=== PATIENT | male | born 1950 | race Caucasian/White ===

== ENCOUNTER 2019-04-28 11:18 | Emergency (ER) | payer MEDICARE, OTHER ==
--- NOTE | 2019-04-28 11:43 | ED ---
General Adult HPI - General Chief complaint: Recheck/Abnormal Lab/Rx Stated complaint: Abnormal labs Time Seen by Provider: 04/28/19 11:30 Source: family Mode of arrival: ambulatory Limitations: no limitations - History of Present Illness Initial comments: Dictation was produced using Paradial dictation software. please excuse any gramma tical, word or spelling errors. Chief Complaint: 68-year-old male sent in by his senior manager mergers & acquisitions for thrombocytopenia. History of Present Illness: Patient is a 73-year-old male he was seen by his senior manager mergers & acquisitions earlier today. He had labs drawn. His found to have a platelet count of 8. Patient has a history of idiopathic thrombocytopenia several years ago. Over the last 3-4 days he had noticed increased bruising. He was instructed to come to the emergency department for platelet transfusion, IV steroids and senior manager mergers & acquisitions consultation. He says bruising patient has no other complaints. Denies any strokelike symptoms. No joint pain. Patient denies any lightheadedness. The ROS documented in this emergency department record has been reviewed and confirmed by me. Those systems with pertinent positive or negative responses have been documented in the HPI. All other systems are other negative and/or noncontributory. PHYSICAL EXAM: General Impression: Alert and oriented x3, not in acute distress HEENT: Normocephalic atraumatic, extra-ocular movements intact, pupils equal and reactive to light bilaterally, mucous membranes moist. Cardiovascular: Heart regular rate and rhythm, S1&S2 audible, no murmurs, rubs or gallops Chest: Lungs clear to auscultation bilaterally, no rhonchi, no wheeze, no rales Abdomen: Bowel sounds present, abdomen soft, non-tender, non-distended, no organomegaly Musculoskeletal: Pulses present and equal in all extremities, no peripheral edema Motor: no focal deficits noted Neurological: CN II-XII grossly intact, no focal motor or sensory deficits noted Skin: Multiple areas of ecchymoses to extremities back and abdomen, no soft palatal petechiae Psych: Normal affect and mood ED course: 68-year-old male presents with abnormal outpatient lab. Patient's history of idiopathic thrombocytopenia. Patient had labs drawn today at the senior manager mergers & acquisitions's office for increased bruising. His fontanelle platelet count of 8. Instructed to come to the emergency department for platelet transfusion and intravenous steroids. Vital signs upon arrival are within acceptable limits. Medications were reviewed.Discussed patient case in detail with nurse practitioner Radha olivares who is covering for Dr. Iverson. She is aware that patient was sent over from Dr. Fonseca's office. She confirms that patient should receive a dose of 1 mg/kg methylprednisolone. Patient given 125 mg of Solu-Medrol. Patient pending demonstration of platelets. His care signed out to oncoming physician. Once patient receives platelet transfusion he can be discharged per senior manager mergers & acquisitions recommendations. - Related Data Home Medications Medication Instructions Recorded Confirmed Amitriptyline HCl 25 mg PO HS 08/09/14 04/28/19 Aspirin EC [Ecotrin] 325 mg PO DAILY 08/09/14 04/28/19 Atorvastatin [Lipitor] 80 mg PO HS 08/09/14 04/28/19 Gabapentin 300 mg PO DAILY 08/09/14 04/28/19 Lisinopril 10 mg PO QAM 08/09/14 04/28/19 Metoprolol Tartrate 25 mg PO BID 08/09/14 04/28/19 predniSONE [Prednisone] 2.5 mg PO DAILY 08/09/14 04/28/19 Ezetimibe [Zetia] 10 mg PO HS 04/28/19 04/28/19 Meloxicam [Mobic] 15 mg PO DAILY 04/28/19 04/28/19 Allergies Allergy/AdvReac Type Severity Reaction Status Date / Time naproxen [From Naprosyn] AdvReac blisters Verified 04/28/19 11:42 Review of Systems ROS Statement: Those systems with pertinent positive or pertinent negative responses have been documented in the HPI. ROS Other: All systems not noted in ROS Statement are negative. Past Medical History Past Medical History: Blood Disorder, Hyperlipidemia, Hypertension, Myocardial Infarction ([place]) Additional Past Medical History / Comment(s): HX OF ITP, NEUROPATHY BLANKA FEET, pre diabetes 08/2018 Last Myocardial Infarction Date:: 2011 History of Any Multi-Drug Resistant Organisms: None Reported Past Surgical History: Heart Catheterization With Stent Additional Past Surgical History / Comment(s): SPLEENECTOMY Past Anesthesia/Blood Transfusion Reactions: No Reported Reaction Date of Last Stent Placement:: 2011 Past Psychological History: No Psychological Hx Reported Smoking Status: Never smoker Past Alcohol Use History: Daily Past Drug Use History: None Reported General Exam Limitations: no limitations Course Vital Signs 04/28/19 04/28/19 04/28/19 11:25 11:54 12:21 Temperature 98.0 F Pulse Rate 59 L 63 64 Respiratory 18 18 18 Rate Blood Pressure 141/91 145/101 152/95 O2 Sat by Pulse 96 95 94 L Oximetry 04/28/19 04/28/19 04/28/19 14:46 15:42 15:52 Temperature 97 F L 98.3 F Pulse Rate 76 80 76 Respiratory 16 18 16 Rate Blood Pressure 152/89 146/87 146/92 O2 Sat by Pulse 94 L 93 L 95 Oximetry 04/28/19 04/28/19 04/28/19 16:22 18:44 18:48 Temperature 98 F 98.7 F 98.7 F Pulse Rate 75 82 82 Respiratory 16 18 18 Rate Blood Pressure 174/92 164/93 164/93 O2 Sat by Pulse 94 L 96 96 Oximetry Medical Decision Making - Lab Data Result diagrams: 04/28/19 11:45 04/28/19 11:45 Lab Results 04/28/19 04/28/19 04/28/19 Range/Units 11:45 11:45 11:45 WBC 9.5 (3.8-10.6) k/uL RBC 4.54 (4.30-5.90) m/uL Hgb 14.2 (13.0-17.5) gm/dL Hct 42.1 (39.0-53.0) % MCV 92.7 (80.0-100.0) fL MCH 31.2 (25.0-35.0) pg MCHC 33.7 (31.0-37.0) g/dL RDW 16.0 H (11.5-15.5) % Plt Count 12 L* (150-450) k/uL Neutrophils % 47 % Lymphocytes % 41 % Monocytes % 7 % Eosinophils % 2 % Basophils % 1 % Neutrophils # 4.4 (1.3-7.7) k/uL Lymphocytes # 3.9 (1.0-4.8) k/uL Monocytes # 0.7 (0-1.0) k/uL Eosinophils # 0.2 (0-0.7) k/uL Basophils # 0.1 (0-0.2) k/uL Manual Slide Review Performed Poikilocytosis (manual Present Anisocytosis Slight [place] Bodies Present PT (9.0-12.0) sec INR (<1.2) APTT (22.0-30.0) sec Fibrinogen (200-500) mg/dL Sodium 139 (137-145) mmol/L Potassium 4.5 (3.5-5.1) mmol/L Chloride 105 (98-107) mmol/L Carbon Dioxide 26 (22-30) mmol/L Anion Gap 8 mmol/L BUN 17 (9-20) mg/dL Creatinine 0.74 (0.66-1.25) mg/dL Est GFR (CKD-EPI)AfAm >90 (>60 ml/min/1.73 sqM) Est GFR (CKD-EPI)NonAf >90 (>60 ml/min/1.73 sqM) Glucose 128 H (74-99) mg/dL Calcium 9.1 (8.4-10.2) mg/dL Blood Type B Positive Blood Type Recheck No Antibody Screen NEGATIVE Transfuse Platelets Spec Expiration Date 05/01/2019 - 234404/28/19 04/28/19 Range/Units 11:45 12:26 WBC (3.8-10.6) k/uL RBC (4.30-5.90) m/uL Hgb (13.0-17.5) gm/dL Hct (39.0-53.0) % MCV (80.0-100.0) fL MCH (25.0-35.0) pg MCHC (31.0-37.0) g/dL RDW (11.5-15.5) % Plt Count (150-450) k/uL Neutrophils % % Lymphocytes % % Monocytes % % Eosinophils % % Basophils % % Neutrophils # (1.3-7.7) k/uL Lymphocytes # (1.0-4.8) k/uL Monocytes # (0-1.0) k/uL Eosinophils # (0-0.7) k/uL Basophils # (0-0.2) k/uL Manual Slide Review Poikilocytosis (manual Anisocytosis [place] Bodies PT 10.0 (9.0-12.0) sec INR 0.9 (<1.2) APTT 23.4 (22.0-30.0) sec Fibrinogen 397 (200-500) mg/dL Sodium (137-145) mmol/L Potassium (3.5-5.1) mmol/L Chloride (98-107) mmol/L Carbon Dioxide (22-30) mmol/L Anion Gap mmol/L BUN (9-20) mg/dL Creatinine (0.66-1.25) mg/dL Est GFR (CKD-EPI)AfAm (>60 ml/min/1.73 sqM) Est GFR (CKD-EPI)NonAf (>60 ml/min/1.73 sqM) Glucose (74-99) mg/dL Calcium (8.4-10.2) mg/dL Blood Type Blood Type Recheck Antibody Screen Transfuse Platelets 04/28/19 Spec Expiration Date Disposition Clinical Impression: Idiopathic thrombocytopenic purpura (ITP) Disposition: HOME SELF-CARE Condition: Good Instructions (If sedation given, give patient instructions): Blood Transfusion Reactions (ED) Is patient prescribed a controlled substance at d/c from ED?: No Referrals: Saw Campbell DO [Primary Care Provider] - 1-2 days Time of Disposition: 16:47
[2019-04-28 12:12] LABS: African American GFR (CKD) >90 (>60 ml/min/1.73 sqM); Anion Gap 8 mmol/L; Blood Urea Nitrogen 17 mg/dL (9-20); Calcium 9.1 mg/dL (8.4-10.2); Carbon Dioxide 26 mmol/L (22-30); Chloride 105 mmol/L (98-107); Glucose 128 mg/dL (74-99); Potassium 4.5 mmol/L (3.5-5.1); Sodium 139 mmol/L (137-145)
[2019-04-28 12:16] LABS: INR 0.9 (<1.2); Partial Thromboplastin Time 23.4 sec (22.0-30.0)
[2019-04-28] MEDS ORDERED: methylPREDNISolone SOD SUCCI 125 MG/2 ML VIAL IV STA (12:37)
[2019-04-28 12:39] LABS: Anisocytosis Slight; Basophils # (A) 0.1 k/uL (0-0.2); Basophils % (A) 1 %; Eosinophils # (A) 0.2 k/uL (0-0.7); Eosinophils % (A) 2 %; HCT 42.1 % (39.0-53.0); HGB 14.2 gm/dL (13.0-17.5); Lymphocytes # (A) 3.9 k/uL (1.0-4.8); Lymphocytes % (A) 41 %; MCH 31.2 pg (25.0-35.0); MCHC 33.7 g/dL (31.0-37.0); MCV 92.7 fL (80.0-100.0); Mean Platelet Volume 9.6; Monocytes # (A) 0.7 k/uL (0-1.0); Monocytes % (A) 7 %; Neutrophils # (A) 4.4 k/uL (1.3-7.7); Neutrophils % (A) 47 %; RBC 4.54 m/uL (4.30-5.90); WBC 9.5 k/uL (3.8-10.6)
[2019-04-28 12:53] LABS: Platelet Count 12 k/uL (150-450)
[2019-04-28 13:10] LABS: Howell-Jolly Bodies Present; Poikilocytosis (M) Present
[2019-04-28 18:45] VITALS: BP 164/93; PULSE 82; RESP 18; TEMP 98.7
--- NOTE | 2019-04-30 06:14 | CDI ---
Documentation Clarification OP Dear Neno BORREGO, DO Please provide clinical impression. Thank you, Garett Goss Assistant Director Of Admissions If you have any questions, please contact [employer] at [phone] [facility]
== END 2019-04-28 18:54 | disposition home or self-care (01) ==
LOC: EC 11:18
DX: D69.3 Immune thrombocytopenic purpura (principal); E78.5 Hyperlipidemia, unspecified; I10 Essential (primary) hypertension; I25.2 Old myocardial infarction; Z95.5 Presence of coronary angioplasty implant and graft; Z79.82 Long term (current) use of aspirin; Z79.52 Long term (current) use of systemic steroids; Z79.1 Long term (current) use of non-steroidal anti-inflammatories (NSAID); Z79.899 Other long term (current) drug therapy; Z88.6 Allergy status to analgesic agent
CPT/HCPCS: 99283; 96374; 36415; 93005; 86900; 86901; 80048; 85025; 85384; 85610; 85730; 86850; P9035; J2930; 36430

== ENCOUNTER → 2020-02-02 | Outpatient (CLI) | payer MEDICARE ==
--- NOTE | 2020-02-02 11:57 | XR ---
No sacral spine HISTORY: Low back pain 5 views of lumbosacral spine Lumbar vertebral bodies show preserved height and alignment. Bone mineralization is reduced. There is loss of disc height at intervertebral levels with associated vacuum phenomenon. Facet arthropathy ch anges are present. There is a spinal curvature.*Your calcified lesions present. No evident spondyloly sis. IMPRESSION: Degenerative disc disease, facet arthropathy, spinal curvature.
== END | disposition home or self-care (01) ==
LOC: RADXRYALE 10:48
PROVIDERS: ATTEND Family Medicine
DX: M51.37 Other intervertebral disc degeneration, lumbosacral region (principal); M47.817 Spondylosis without myelopathy or radiculopathy, lumbosacral region; M43.9 Deforming dorsopathy, unspecified; M54.42 Lumbago with sciatica, left side
CPT/HCPCS: 72110

== ENCOUNTER → 2020-02-11 | Outpatient (CLI) | payer MEDICARE ==
--- NOTE | 2020-02-10 19:15 | MR ---
EXAMINATION TYPE: MR lumbar spine wo con DATE OF EXAM: 02/10/2020 COMPARISON: Lumbar spine x-ray February 02, 2020 HISTORY: Lumbar goal with right-sided sciatica. Other intervertebral disc degeneration. Chronic pain. Low back pain for 6 months causing pain into both buttocks and thighs per patient. TECHNIQUE: Multiplanar, multisequence imaging of the lumbar spine is performed without IV contrast. FINDINGS: There is levoconvex scoliosis centered in the mid lumbar spine redemonstrated. Sagittal shasta ges of the lumbar spine show vertebral body heights to remain satisfactory. Loss of normal lumbar ashley dosis with straightening again seen. Multilevel disc desiccation with fairly advanced multilevel disc space narrowing along with significant heterogeneous predominantly Modic type II endplate changes gr eatest in the mid to lower lumbar spine. Moderate to severe multilevel anterior spurring redemonstrat ed. The conus medullaris is normal in position and signal ending inferior L1 level. There is prominen ce of epidural fat noted throughout the lumbar spine. Axial images at T12-L1 level shows mild broad-based disc bulge and mild facet arthropathy. There is m inimal effacement anterior thecal sac. Axial images at L1-L2 level show moderate broad-based disc bulge effacing anterior thecal sac with mi ld facet arthropathy bilaterally. There is mild left greater than right bilaterally. Inferior neural foraminal narrowing. Axial images at the L2-L3 level shows advanced broad disc bulge with right paracentral disc protrusio n component effacing the anterior thecal sac. Rslg-xw-vldikizr facet degenerative changes bilaterally . There is [id number]-[id number] bilateral anterior inferior neural foraminal narrowing. Axial images at the L3-L4 level show mild/moderate facet degenerative changes and ligamentum flavum h ypertrophy with moderate broad disc bulge effacing the anterior thecal sac. There is moderate right a nd mild left-sided neural foraminal narrowing noted. Axial images at L4-L5 level shows advanced broad disc bulge with moderate facet degenerative changes bilaterally. There is effacement of the anterior and posterior lateral thecal sac. There is mild to m oderate left and mild to moderate bilateral neural foraminal narrowing noted. Axial images at the L5-S1 level show mild/moderate facet degenerative changes bilaterally. There is b road-based left foraminal/lateral. This causes moderate to severe left-sided neural foraminal narrowi ng and encroachment on left L5 nerve sagittal image 6 and axial image 3. Right-sided neural foramina is patent. Spinal canal preserved. Mild to moderate generalized fat replaced atrophy of the paraspinal muscles. IMPRESSION: Scoliosis and loss of normal lumbar lordosis. Epidural lipomatosis. Moderate to severe mu ltilevel degenerative changes as detailed above with encroachment left L5 nerve at L5-S1 level felt p resent.
== END | disposition home or self-care (01) ==
LOC: RADMRIMAIN 06:45
PROVIDERS: ATTEND Family Medicine
DX: M41.86 Other forms of scoliosis, lumbar region (principal); E88.2 Lipomatosis, not elsewhere classified; M47.815 Spondylosis without myelopathy or radiculopathy, thoracolumbar region; M47.816 Spondylosis without myelopathy or radiculopathy, lumbar region; M47.817 Spondylosis without myelopathy or radiculopathy, lumbosacral region; G63 Polyneuropathy in diseases classified elsewhere
CPT/HCPCS: 72148

== ENCOUNTER → 2020-05-09 | Outpatient (CLI) | payer MEDICARE ==
[2020-05-09 08:41] VITALS: BP 138/88; PULSE 69; RESP 16; TEMP 98.1
--- NOTE | 2020-05-09 08:55 | P.PAINCN ---
History of Present Illness - Reason for Consult Consult date: 05/09/20 - History of Present Illness This is an initial consultation of visit for this 69 years old male with a chronic history of severe low back pain, started more than 9 months ago, and increased intensity over time, currently the pain is constant and increases with any activity and interfere with the quality of life, he denies any motor or sensory deficits he denies any fever or night sweats he denies any change in bowel movement or urination, and appropriate in the pain is constant and increases with any activity due to the posterior lateral aspect of the lower extremity more prominent on the left side, patient had a history of peripheral neuropathy secondary to diabetes, and he had a history of idiopathic thrombocytopenia Past Medical History Past Medical History: Blood Disorder, Diabetes Mellitus, Hyperlipidemia, Hypertension, Myocardial Infarction ([place]) Additional Past Medical History / Comment(s): sciatica, HX OF ITP, NEUROPATHY BLANKA FEET Last Myocardial Infarction Date:: 2011 History of Any Multi-Drug Resistant Organisms: None Reported Past Surgical History: Heart Catheterization With Stent, Tonsillectomy Additional Past Surgical History / Comment(s): SPLEENECTOMY Past Anesthesia/Blood Transfusion Reactions: No Reported Reaction Date of Last Stent Placement:: 2011 Smoking Status: Never smoker - Past Family History Mother Family Medical History: No Reported History Father Family Medical History: Diabetes Mellitus Sister(s) Family Medical History: Diabetes Mellitus Medications and Allergies Home Medications Medication Instructions Recorded Confirmed Type Amitriptyline HCl 25 mg PO HS 08/09/14 05/06/20 History Aspirin EC [Ecotrin] 325 mg PO DAILY 08/09/14 05/06/20 History Atorvastatin [Lipitor] 80 mg PO HS 08/09/14 05/06/20 History Gabapentin 900 mg PO BID 08/09/14 05/06/20 History Metoprolol Tartrate 25 mg PO BID 08/09/14 05/06/20 History lisinopriL [Lisinopril] 10 mg PO QAM 08/09/14 05/06/20 History predniSONE [Prednisone] 5 mg PO DAILY 08/09/14 05/06/20 History Ezetimibe [Zetia] 10 mg PO HS 04/28/19 05/06/20 History Acetaminophen Tab [Tylenol Tab] 1,000 mg PO Q6HR PRN 05/06/20 05/06/20 History Furosemide [Lasix] 20 mg PO DAILY 05/06/20 05/06/20 History metFORMIN HCL [Glucophage] 500 mg PO BID 05/06/20 05/06/20 History Allergies Allergy/AdvReac Type Severity Reaction Status Date / Time naproxen [From Naprosyn] Allergy blisters Verified 05/06/20 10:41 to [facility] Physical Exam Vitals: Vital Signs Temp Pulse Resp BP Pulse Ox 05/09/20 08:38 98.1 F 69 16 138/88 97 Physical Examinations : -Constitutiona : Cooperative , not in acute distress . -HEENT : nech : supple , no Lymphadenopathy , normal thyroid size . : eyes : no ptosis , no icterus, no photophobia . - neurologic : Cranial nerve II to XII intact , no focal neurological deffecit . -psychatric : alert , oriented X 3 , appropriate affect , intact judgment and insight . -Lymphatic : no Lymphadenopathy . - musculoskeltal : Lumber spine moter stegnth lower extremities ,thigh and legs 5/5 Right side , 5/5 Left side deep tendon reflexes : normal Knee Jerk , normal ankle Jerk lumber facet Loading Test =positive Right , positive Left Range of motion of the lumbar spine Flexion 30 degrees, extension 10 degrees strait leg raising test = positive at 60 degree Fabere test= positive Right , and positive LT . tenderness over the Sacroiliac joint on the Right , and Left sides Results Comments: MRI of the lumbar spine= L2-lumbar bulging disks disease L2-3 and C4 L4 5 and L5-S1 multilevel lumbar facet degeneration and foraminal stenosis at L4 5 and L5-S1 and epidural lipomatosis Assessment and Plan Plan: Assessment and plan=1-lumbar spondylosis with lumbar facet arthropathy without myelopathy. 2-lumbar bulging disc disease. 3-lumbar foraminal stenosis. 4-epidural lipomatosis. 5-peripheral neuropathy. 6-history of ITP. Patient with good candidate to have diagnostic m edial branch block lumbar area at L3, L4, L5 ( to block the facet joints L4-5,L5-S1 ) Time with Patient: Greater than 30 PQRS Measure Charge Sheet Measure #130: Documentation of Current Meds in Medical Chart: Patient's medications documented in chart Measure #226: Tobacco Use: Screen & Cessation Intervention: Pt not a tobacco user Measure #111: Pneumonia Vaccination: Pneumococcal vaccine administered or previously received Measure #47: Advance Care Plan: Advance care planning discussed & documented, pt chose/unable to give Measure #412: Opioid Treatment Agreement: No documentation of signed opioid treatment agreement Measure #408: Opioid Therapy Follow-up Evaluation: Patient had NO f/u eval minimum every 3 months during opioid therapy Measure #317: Preventitive Care & Scrn High Bld Press & F/U: Normal blood pressure, f/u not required Measure #128: Body Mass Index (BMI) Screening & Follow-up: BMI documented ABOVE normal parameters - f/u documented Measure #131: Pain Assessment & Follow-up: Pain positive & plan documented, Follow-up scheduled Measure #431: Unhealthy Alcohol Use Preventative Care & Scrn: Patient not identified as an unhealthy alcohol user PQRS Narrative: Smoking Status Never smoker Blood Pressure 138/88 Pain Intensity [Back] 7 Scale Used Numeric (1 - 10) Hx Alcohol Use (MH) No Home Medications: Ambulatory Orders Amitriptyline HCl 25 mg PO HS 08/09/14 Aspirin EC [Ecotrin] 325 mg PO DAILY 08/09/14 Atorvastatin [Lipitor] 80 mg PO HS 08/09/14 Gabapentin 900 mg PO BID 08/09/14 Metoprolol Tartrate 25 mg PO BID 08/09/14 lisinopriL [Lisinopril] 10 mg PO QAM 08/09/14 predniSONE [Prednisone] 5 mg PO DAILY 08/09/14 Ezetimibe [Zetia] 10 mg PO HS 04/28/19 Acetaminophen Tab [Tylenol Tab] 1,000 mg PO Q6HR PRN 05/06/20 Furosemide [Lasix] 20 mg PO DAILY 05/06/20 metFORMIN HCL [Glucophage] 500 mg PO BID 05/06/20
== END | disposition home or self-care (01) ==
LOC: PNWHC3 08:14
PROVIDERS: ATTEND Specialist
DX: G89.29 Other chronic pain (principal); M48.061 Spinal stenosis, lumbar region without neurogenic claudication; M51.26 Other intervertebral disc displacement, lumbar region; M47.816 Spondylosis without myelopathy or radiculopathy, lumbar region; G62.9 Polyneuropathy, unspecified; Z86.2 Personal history of diseases of the blood and blood-forming organs and certain disorders involving the immune mechanism; Z79.82 Long term (current) use of aspirin; Z79.84 Long term (current) use of oral hypoglycemic drugs; Z79.899 Other long term (current) drug therapy; Z88.6 Allergy status to analgesic agent
CPT/HCPCS: 99211

== ENCOUNTER 2020-05-24 09:30 | Day surgery (SDC) | payer MEDICARE ==
[2020-05-20 10:35] VITALS: BMI 36.2
[~2020-05-24 09:30] MED LIST: LACTATED RINGERS 1,000 ML IV SCH
[2020-05-24 10:10] VITALS: RESP 16; TEMP 97.2
[2020-05-24] MEDS ORDERED: LIDOCAINE 1% (10MG/ML) FOR IV START INTRADERMA ONE (10:15)
[2020-05-24 10:17] LABS: Glucose,Whole Blood 142 mg/dL (75-99)
[2020-05-24] MEDS ORDERED: ROPIVACAINE 5MG/ML 20ML VIAL ONE (10:57)
[2020-05-24] MEDS ORDERED: TRIAMCINOLONE ACETONIDE 40 MG/ML 1 ML VIAL ONE (10:57)
[2020-05-24] MEDS ORDERED: MIDAZOLAM 2 MG/2 ML VIAL ONE (10:57)
--- NOTE | 2020-05-24 11:17 | P.PCN ---
Date of Procedure: 05/24/20 Surgeon: Samra Yuan Pathology: none sent Condition: stable Disposition: PACU Description of Procedure: PREOPERATIVE DIAGNOSIS : 1- Lumbar spondylosis with Facet Arthropathy without myelopathy . 2- Lumber degenerative disc disease POSTOPERATIVE DIAGNOSIS: 1- Lumbar spondylosis with Facet Arthropathy without myelopathy . 2- Lumber degenerative disc disease PROCEDURE: Diagnostic bilateral L3 -4 , L4 -5 , and L5-S1 medial branch block under fluoroscopy Physician: Samra Yuan MD ANESTHESIA: Local with 1% lidocaine; IV moderate conscious sedation with Versed 2 mg . EBL: Negligible COMPLICATION: None. PROCEDURE INDICATION: Chronic low back pain secondary to Facet arthropathy unresponsive to conservative treatment. PROCEDURE DESCRIPTION: the patient was seen and identified in the preop holding area , risks and benefits and possible complications of the procedure and alternatives were discussed with the patient, and the patient agreed to proceed with the procedure and signed the consent. IV was started and vital signs monitored during the procedure and fluoroscopy was used to maximize the benefit and accuracy of the needle placement, sedation was given to decrease patient anxiety, patient was taken to the procedure room and placed in prone position vital signs monitored. The patient was brought into the procedure room and placed in prone position. Skin was prepped with Chloraprep and draped in a sterile manner. Lidocaine 1% was used to numb the skin up at the target points that were chosen as follows: at the L5-S1 level which corresponds to the dorsal ramus of L5 the target points were at the superior medial aspect of the sacral ala on each side of the spine on the AP view of fluoroscopy, and for theL2, L3 and L4 medial branches the target points were the connection between the transverse process and the superior to go process of L3, L4 and L5 respectively on the oblique views of fluoroscopy. I used 22-gauge 3-1/2 inch Quincke spinal needles for this procedure and after contacting bone at the target points mentioned above I injected 1 mL of a mixture of Kenalog 40 mg +5 MLS of Ropivacaine 0.5% PF . Patient tolerated procedure well. At the end of the procedure the needles removed and a bandage applied after the skin was cleaned the cleaning solution. patient was then taken to the recovery room in stable condition and monitored in the recovery room for 20-30 minutes and discharged home in stable condition after discharge criteria met . A copy of the needle placement picture was saved to the C-arm machine.
[2020-05-24] MEDS ORDERED: IV FLUID CONTINUATION 1,000 ML IV ONE (11:21)
[2020-05-24 12:01] VITALS: BP 118/64; PULSE 75
--- NOTE | 2020-05-24 12:23 | FL ---
Fluoroscopy HISTORY: Pain 10 seconds fluoroscopy time supplied to the referring clinician. 5 intraoperative C-arm images docum ent the procedure. See dictated report from anesthesia.
== END 2020-05-24 12:10 | disposition home or self-care (01) ==
LOC: ORPAIN 09:30
PROVIDERS: ATTEND Anesthesiology
DX: G89.29 Other chronic pain (principal); M47.816 Spondylosis without myelopathy or radiculopathy, lumbar region; M51.36 Other intervertebral disc degeneration, lumbar region; I10 Essential (primary) hypertension; E11.9 Type 2 diabetes mellitus without complications; D69.3 Immune thrombocytopenic purpura; Z88.6 Allergy status to analgesic agent
CPT/HCPCS: 64493; 64494; 64495; J2250; J3301; J2795; 99152

== ENCOUNTER 2020-06-21 12:15 | Day surgery (SDC) | payer MEDICARE ==
[2020-06-17 16:16] VITALS: BMI 36.3
[2020-06-21 12:34] VITALS: TEMP 97.9
[2020-06-21 12:40] LABS: Glucose,Whole Blood 141 mg/dL (75-99)
[2020-06-21] MEDS ORDERED: MIDAZOLAM 2 MG/2 ML VIAL ONE (12:45)
[2020-06-21] MEDS ORDERED: TRIAMCINOLONE ACETONIDE 40 MG/ML 1 ML VIAL ONE (12:45)
[2020-06-21] MEDS ORDERED: ROPIVACAINE 5MG/ML 20ML VIAL ONE (12:45)
--- NOTE | 2020-06-21 13:04 | P.PCN ---
Date of Procedure: 06/21/20 Surgeon: Samra Yuan Pathology: none sent Condition: stable Disposition: PACU Description of Procedure: PREOPERATIVE DIAGNOSIS : 1- Lumbar spondylosis with Facet Arthropathy without myelopathy . 2- Lumber degenerative disc disease POSTOPERATIVE DIAGNOSIS: 1- Lumbar spondylosis with Facet Arthropathy without myelopathy . 2- Lumber degenerative disc disease PROCEDURE: Diagnostic bilateral L3 -4 , L4 -5 , and L5-S1 medial branch block under fluoroscopy Physician: Samra Yuan MD ANESTHESIA: Local with 1% lidocaine; IV moderate conscious sedation with Versed 2 mg . EBL: Negligible COMPLICATION: None. PROCEDURE INDICATION: Chronic low back pain secondary to Facet arthropathy unresponsive to conservative treatment. PROCEDURE DESCRIPTION: the patient was seen and identified in the preop holding area , risks and benefits and possible complications of the procedure and alternatives were discussed with the patient, and the patient agreed to proceed with the procedure and signed the consent. IV was started and vital signs monitored during the procedure and fluoroscopy was used to maximize the benefit and accuracy of the needle placement, sedation was given to decrease patient anxiety, patient was taken to the procedure room and placed in prone position vital signs monitored. The patient was brought into the procedure room and placed in prone position. Skin was prepped with Chloraprep and draped in a sterile manner. Lidocaine 1% was used to numb the skin up at the target points that were chosen as follows: at the L5-S1 level which corresponds to the dorsal ramus of L5 the target points were at the superior medial aspect of the sacral ala on each side of the spine on the AP view of fluoroscopy, and for theL2, L3 and L4 medial branches the target points were the connection between the transverse process and the superior to go process of L3, L4 and L5 respectively on the oblique views of fluoroscopy. I used 22-gauge 3-1/2 inch Quincke spinal needles for this procedure and after contacting bone at the target points mentioned above I injected 1 mL of a mixture of Kenalog 40 mg +7 MLS of Ropivacaine 0.5% PF . Patient tolerated procedure well. At the end of the procedure the needles removed and a bandage applied after the skin was cleaned the cleaning solution. patient was then taken to the recovery room in stable condition and monitored in the recovery room for 20-30 minutes and discharged home in stable condition after discharge criteria met . A copy of the needle placement picture was saved to the C-arm machine.
[2020-06-21] MEDS ORDERED: IV FLUID CONTINUATION 1,000 ML IV ONE (13:08)
[2020-06-21 13:11] VITALS: RESP 18
[2020-06-21 13:21] VITALS: BP 126/76; PULSE 76
--- NOTE | 2020-06-21 14:28 | FL ---
EXAMINATION TYPE: FL guided pain mgmt statistic DATE OF EXAM: 06/21/2020 HISTORY: Pain epidural injection was performed. 10 seconds of fluoroscopic time was provided by the department of radiology. 3 image was provided for documentation purposes.
== END 2020-06-21 13:39 | disposition home or self-care (01) ==
LOC: ORPAIN 12:15
PROVIDERS: ATTEND Anesthesiology
DX: G89.29 Other chronic pain (principal); M47.816 Spondylosis without myelopathy or radiculopathy, lumbar region; M51.36 Other intervertebral disc degeneration, lumbar region; E11.9 Type 2 diabetes mellitus without complications; E66.9 Obesity, unspecified; Z68.36 Body mass index [BMI] 36.0-36.9, adult
CPT/HCPCS: 64493; 64494; 64495; J2250; J3301; J2795; 99152

== ENCOUNTER → 2020-07-13 | Outpatient (CLI) | payer MEDICARE ==
[2020-07-13 10:37] VITALS: BP 127/80; PULSE 74; RESP 16; TEMP 98
--- NOTE | 2020-07-13 11:15 | P.PN ---
Subjective Progress Note Date: 07/13/20 This is a 61-year-old gentleman with history of axial lower back pain. The patient received a diagnostic lumbar medial branch block recently which gave him significant relief of his pain. He does have a history of ITP and he has been on a daily dose of prednisone lately it has been 5 mg a day of it. The patient had splenectomy previously as a treatment for ITP which has not worked up completely well. Patient denies new-onset weakness, bowel/bladder incontinence, or any other signs or symptoms of cauda equina syndrome. There are no signs of acute intoxication, and no indications of medication diversion or overuse. In addition to above, 13-point review of systems is also negative for chest pain, shortness of breath, changes in vision, changes in hearing, new onset weakness, abdominal pain, diarrhea, extreme fatigue, malaise, fever, skin changes, homicidal or suicidal ideation, or bowel or bladder incontinence. Vital Signs: Reviewed in EMR Gen: AAOx3, NAD HEENT: PERRLA,hearing grossly normal Pulm: resp unlabored Neck: supple, trachea midline Neuro exam of the lower extremities: the strength bilaterally Straight leg raising test: Harman's test: Range of motion of the lumbar spine: Facet loading test: Tenderness in the paravertebral musculature: Positive tenderness the lumbar paravertebral musculature bilaterally Neuro: CN II-XII grossly intact, Imaging: Reviewed in EMR/chart Assessment: Lumbar spondylosis without myelopathy Lumbar DDD Epidural lipomatosis Obesity ITP Plan: 1. Explanation: Opioid and psychological risk scores were reviewed. Diagnoses, prognoses, and multiple treatment options including but not limited to physical therapy, interventional therapies, adjuvant medical therapies, narcotic medication therapies, and surgery were discussed with the patient and all questions were answered to the patient's satisfaction. 2. Opioid agreement: Signed with the patient and the patient is warned not to use opioids while driving or before driving and not to combine opioids with benzodiazepines or alcohol. 3. Counseling: The patient was counseled extensively on SMOKING CESSATION, BODY MASS INDEX, EXERCISE. Specifically, the patient was instructed regarding the importance of smoking cessation, obesity, and exercise in the context of both chronic pain and overall health. 4. Procedures: Scheduled for a lumbar medial branch RFA bilaterally, levels L4 5 and L5-S1 under fluoroscopic guidance. We will repeat his platelet count before the procedure. 5. Consultations: None 6. Investigations: None 7. Medications: none 8. Disposition: Return to clinic in 4 weeks after the above-mentioned procedure as soon as possible 9. Maps were reviewed and were appropriate. PQRS measures: 1-Patient's medications are documented in the chart. 2-Tobacco use is negative, counseling given 3-Patient has had a pneumococcal vaccine. 4-Advanced care planning discussed, patient unable to give 5-Opioid contract signed with the patient. 6-Pain positive, follow-up visit or procedure scheduled 7-Patient's blood pressure measured and documented above/ normal limits. The patient will follow up with his primary care physician. 8-Patient's weight was measured, and body mass index ABOVE the normal limits, and counseling was done. Patient instructed to follow up with PCP. 9-Patient WAS NOT identified as an unhealthy alcohol user. Objective - Vital Signs Vital signs: Vital Signs Temp 98 F 07/13/20 10:31 Pulse 74 07/13/20 10:31 Resp 16 07/13/20 10:31 BP 127/80 07/13/20 10:31 Pulse Ox 96 07/13/20 10:31
== END | disposition home or self-care (01) ==
LOC: PNWHC3 10:24
PROVIDERS: ATTEND Anesthesiology
DX: M47.816 Spondylosis without myelopathy or radiculopathy, lumbar region (principal); M51.36 Other intervertebral disc degeneration, lumbar region; E66.9 Obesity, unspecified; D69.3 Immune thrombocytopenic purpura; E88.2 Lipomatosis, not elsewhere classified
CPT/HCPCS: 99211

== ENCOUNTER → 2020-07-29 | Day surgery (SDC) | payer MEDICARE ==
[2020-07-27 14:16] VITALS: BMI 36.6
[~2020-07-29] MED LIST changes: +IV FLUID CONTINUATION 500 ML IV ONE; +LACTATED RINGERS 1,000 ML IV ONE; -LACTATED RINGERS 1,000 ML IV SCH; +LIDOCAINE 1% (10MG/ML) FOR IV START INTRADERMA ONE; +LIDOCAINE 1% INJ 10MG/ML (20 ML MDV) ONE; +LIDOCAINE 4% (PF) 5 ML AMP ONE; +MIDAZOLAM 2 MG/2 ML VIAL ONE; +fentaNYL (PF) 50 MCG/ML 2 ML AMP ONE
[2020-07-29 12:02] VITALS: TEMP 96.6
[2020-07-29 12:04] LABS: Glucose,Whole Blood 160 mg/dL (75-99)
[2020-07-29 12:13] LABS: HCT 45.1 % (39.0-53.0); HGB 15.1 gm/dL (13.0-17.5); MCH 31.7 pg (25.0-35.0); MCHC 33.5 g/dL (31.0-37.0); MCV 94.5 fL (80.0-100.0); Mean Platelet Volume 8.8; Platelet Count 245 k/uL (150-450); RBC 4.78 m/uL (4.30-5.90); RDW 14.2 % (11.5-15.5); WBC 13.6 k/uL (3.8-10.6)
--- NOTE | 2020-07-29 12:56 | P.PCN ---
Date of Procedure: 07/29/20 Description of Procedure: PREOPERATIVE DIAGNOSIS: Lumbar Spondylosis POSTOPERATIVE DIAGNOSIS: Same PROCEDURES: Radiofrequency ablation of the bilateral L3, L4, L5 medial branches with fluoroscopic guidance SURGEON: Burak Alfredo MD. ANESTHESIA: Lidocaine 1% 5 mL, Moderate sedation EBL: Minimal Fluoroscopy was used for the procedure and images were saved in the radiology portion of the chart. PROCEDURE INDICATION: The patient with low back pain secondary to lumbar facet arthropathy who had more than 50% relief of pain with previous diagnostic lumbar medial branch block X2. PROCEDURE DESCRIPTION / TECHNIQUE: The patient was seen and identified in the preoperative area. Risks, benefits, complications, including but not limited to risk of infection ,bleeding , allergic reactions to the medications and incomplete pain relief , and alternatives were discussed with the patient, the patient agreed to proceed with the procedure and signed the consent. IV was started. The operative site was marked. Patient was taken to the OR and time out was completed. The patient was placed in the prone position on the procedure table. The lumbar area was prepped and draped in the usual sterile fashion. . Vital signs were closely monitored during the procedure .IV sedation was used during the procedure to decrease patients anxiety. Using AP and then oblique fluoroscopy, the "eye of the Sim dog" corresponding to the connection between the superior and transverse articular processes of the L4 and L5 as well as the sacral ala were identified, marked, and localized with 1% lidocaine. Subsequently, an [id number] radiofrequency cannula with a 10-mm active tip was advanced guided by fluoroscopy to the identified target at each site. Needle positioning was confirmed on AP, oblique and lateral fluoroscopy. Motor testing at 2.5 Hz was done with paraspinal muscle stimulation only, and no radicular symptoms down the legs. Then 1 mL of 4% lidocaine was injected in each site. Radiofrequency thermocoagulation at 80 degrees celsius for 90 seconds was then performed. Nicollet were removed. Sterile dressings were applied. COMPLICATIONS: No acute complications. DISPOSITION / PLANS: The patient was placed in a supine position and transferred to the recovery area in a stable condition for observation and was discharged from the recovery room after meeting discharge criteria. Home discharge instructions given to the patient by the staff. The patient will follow up in clinic in 8 weeks.
[2020-07-29 13:21] VITALS: BP 109/72; PULSE 73; RESP 18
--- NOTE | 2020-07-29 15:04 | FL ---
Fluoroscopy INDICATION: Pain FINDINGS: Fluoroscopy time: 1 minute 0 seconds. Images obtained: 6. IMPRESSIONS: 1. Documentation of fluoroscopy.
== END ==
LOC: ORPAIN 11:33
PROVIDERS: ATTEND Anesthesiology
DX: M47.896 Other spondylosis, lumbar region (principal); E11.9 Type 2 diabetes mellitus without complications; D69.3 Immune thrombocytopenic purpura; K08.89 Other specified disorders of teeth and supporting structures; Z88.6 Allergy status to analgesic agent; Z95.5 Presence of coronary angioplasty implant and graft
CPT/HCPCS: 85027; 64635; 64636; J2001 ×2; J2250; J3010

== ENCOUNTER 2020-08-09 16:01 | Emergency (ER) | payer MEDICARE ==
[2020-08-09 16:13] VITALS: RESP 18; TEMP 98.4
[2020-08-09 17:27] VITALS: BP 155/83; PULSE 71
--- NOTE | 2020-08-09 17:28 | US ---
EXAMINATION TYPE: US venous doppler duplex LE LT DATE OF EXAM: 08/09/2020 5:21 PM COMPARISON: NONE CLINICAL HISTORY: decreased pulse. rule out DVT SIDE PERFORMED: left TECHNIQUE: The lower extremity deep venous system is examined utilizing real time linear array sonog rylie with graded compression, doppler sonography and color-flow sonography. VESSELS IMAGED: Common Femoral Vein Deep Femoral Vein Greater Saphenous Vein * Femoral Vein Popliteal Vein Small Saphenous Vein * Proximal Calf Veins (* superficial vessels) Left Leg: no evidence of DVT. technical limitations due to patient's body habitus and patient scanne d in a reclining chair IMPRESSION: No evidence of deep vein thrombosis in the left leg.
--- NOTE | 2020-08-09 17:38 | ED ---
Extremity Problem HPI - General Chief complaint: Extremity Problem,Nontraumatic Stated complaint: L Extremity - No Pulse Time Seen by Provider: 08/09/20 17:19 Source: patient Mode of arrival: wheelchair Limitations: no limitations - History of Present Illness Initial comments: 69yo male presenting for cc of sent from outside sales account representative. Pt states that he was sent in due to pulseless left foot he states he went to the outside sales account representative for the right foot callus then the nurse noticed his left foot felt colder than his right foot-the physician came into the room and tried to feel pulses by his ankle and on top of the foot and couldnt then told patient to come to ER. patient on arrival in triage had both palpable DP and TP pulses per nursing staff and well as pulses with doppler. Pt denies pain in the left foot, denies discoloration, states both feet are always cold to touch. Pt denies pain with walking. Pt denies additional complaints. Upon arrival he appears well nontoxic in no acute distress. An ATP venous doppler by nursing stafff (triage) was placed however this was not a personal order of mine. - Related Data Home Medications Medication Instructions Recorded Confirmed Amitriptyline HCl 25 mg PO HS 08/09/14 07/27/20 Atorvastatin [Lipitor] 80 mg PO HS 08/09/14 07/29/20 Gabapentin 900 mg PO BID 08/09/14 07/29/20 Metoprolol Tartrate 25 mg PO BID 08/09/14 07/29/20 lisinopriL [Lisinopril] 10 mg PO QAM 08/09/14 07/29/20 predniSONE [Prednisone] 5 mg PO DAILY 08/09/14 07/29/20 Ezetimibe [Zetia] 10 mg PO HS 04/28/19 07/29/20 Acetaminophen Tab [Tylenol Tab] 1,000 mg PO Q6HR PRN 05/06/20 07/27/20 Furosemide [Lasix] 20 mg PO DAILY 05/06/20 07/29/20 metFORMIN HCL [Glucophage] 500 mg PO BID 05/06/20 07/29/20 Allergies Allergy/AdvReac Type Severity Reaction Status Date / Time naproxen [From Naprosyn] Allergy blisters Verified 08/09/20 16:07 to mult areas Review of Systems ROS Statement: Those systems with pertinent positive or pertinent negative responses have been documented in the HPI. ROS Other: All systems not noted in ROS Statement are negative. Past Medical History Past Medical History: Blood Disorder, Diabetes Mellitus, Hyperlipidemia, Hypertension, Myocardial Infarction ([place]) Additional Past Medical History / Comment(s): Sciatica, HX OF ITP, NEUROPATHY BLANKA FEET. Last Myocardial Infarction Date:: 2011 History of Any Multi-Drug Resistant Organisms: None Reported Past Surgical History: Heart Catheterization With Stent, Tonsillectomy Additional Past Surgical History / Comment(s): SPLEENECTOMY, Bilateral cataract surgery. Past Anesthesia/Blood Transfusion Reactions: No Reported Reaction Date of Last Stent Placement:: 2011 Past Psychological History: No Psychological Hx Reported Smoking Status: Never smoker - Past Family History Mother Family Medical History: No Reported History Father Family Medical History: Diabetes Mellitus Sister(s) Family Medical History: Diabetes Mellitus General Exam - General Exam Comments Initial Comments: General: The patient is awake and alert, in no distress, and does not appear acutely ill. Eye: Pupils are equal, round and reactive to light, extra-ocular movements are intact. No nystagmus. There is normal conjunctiva bilaterally. No signs of icterus. Cardiovascular: There is a regular rate and rhythm. No murmur, rub or gallop is appreciated. Respiratory: Lungs are clear to auscultation, respirations are non-labored, breath sounds are equal. No wheezes, stridor, rales, or rhonchi. Musculoskeletal: Both feet cool to touch, john has palpable pulses both DP and TP by nurse renay as well as myself. Doppler of the TP very strong, the DP is strong as well. The pulse doesnt appears significantly different than the right foot. The left foot is slightly more cool. No pain to palpation. Normal ROM, no tenderness. Strength 5/5. Sensation intact. DP pulses palpable b/l, appear equal maybe left slightly decreased in comparison with right. Neurological: A&O x 3. CN II-XII intact, There are no obvious motor or sensory deficits. Coordination appears grossly intact. Speech is normal. Skin: Skin is warm and dry and no rashes or lesions are noted. Psychiatric: Cooperative, appropriate mood & affect, normal judgment. Limitations: no limitations Course Vital Signs 08/09/20 08/09/20 16:03 17:22 Temperature 98.4 F Pulse Rate 78 71 Respiratory 18 18 Rate Blood Pressure 157/82 155/83 O2 Sat by Pulse 97 96 Oximetry Medical Decision Making - Medical Decision Making 69yo presenting for possible pulseless foot. palpable pulses in triage, by ER nurse and by myself. Dopplers present/strong. Pt case discussed in detail with Dr cruz who recommend aspirin at home and vascular f/u outpatient with return for pain of left foot, color changes, pain with walking. recommend pcp f/u in 1- 2days for repeat pulse exam. pt states he cannot take aspirin with ITP, told patient to follow hematology recommendations. Disposition Clinical Impression: Cold feet Disposition: HOME SELF-CARE Condition: Good Additional Instructions: Please use medication as discussed. Please follow-up with family doctor in the next 2 days, and vascular surgeon in next 3-5 days or sooner if possible CALL TOMORROW. Please return to emergency room if the symptoms increase or worsen or for any other concerns. Is patient prescribed a controlled substance at d/c from ED?: No Referrals: Saw Campbell DO [Primary Care Provider] - 1-2 days Ronnie Drake DO [STAFF PHYSICIAN] - 1-2 days Time of Disposition: 17:38
== END 2020-08-09 17:46 | disposition home or self-care (01) ==
LOC: EC 16:01
DX: R20.8 Other disturbances of skin sensation (principal); I10 Essential (primary) hypertension; E78.5 Hyperlipidemia, unspecified; E11.40 Type 2 diabetes mellitus with diabetic neuropathy, unspecified; I25.2 Old myocardial infarction; Z79.51 Long term (current) use of inhaled steroids; Z79.899 Other long term (current) drug therapy; Z79.84 Long term (current) use of oral hypoglycemic drugs; Z88.6 Allergy status to analgesic agent
CPT/HCPCS: 99283

== ENCOUNTER → 2020-08-15 | Outpatient (CLI) | payer MEDICARE ==
[2020-08-15 11:08] VITALS: BP 143/76; PULSE 65; RESP 16; TEMP 97.7
--- NOTE | 2020-08-15 11:35 | P.PN ---
Subjective Progress Note Date: 08/15/20 This is a follow-up visit for this 69 years old male with a chronic history of severe low back pain, is very close with lumbar degenerative disc disease, lumbar spondylosis with lumbar facet arthropathy, status post RFA of the medial branch lumbar area, patient reported that he continued to have severe low back pain, with radiation to the lower extremity patient had excellent pain relief after the diagnostic medial branch blocks, and he had short-term benefit after the RFA, and denies any motor or sensory deficits he denies any change in the bowel movement or urination denies any fever or night sweats, patient continued to use the Neurontin 900 mg twice a day and Tylenol when necessary, patient had ITP and he cannot use NSAIDs Objective - Vital Signs Vital signs: Vital Signs Temp 97.7 F 08/15/20 11:00 Pulse 65 08/15/20 11:00 Resp 16 08/15/20 11:00 BP 143/76 08/15/20 11:00 Pulse Ox 94 L 08/15/20 11:00 - Exam Physical Examinations : -Constitutiona : Cooperative , not in acute distress . -HEENT : nech : supple , no Lymphadenopathy , normal thyroid size . : eyes : no ptosis , no icterus, no photophobia . - neurologic : Cranial nerve II to XII intact , no focal neurological deffecit . -psychatric : alert , oriented X 3 , appropriate affect , intact judgment and insight . -Lymphatic : no Lymphadenopathy . - musculoskeltal : Lumber spine moter stegnth lower extremities ,thigh and legs 5/5 Right side , 5/5 Left side deep tendon reflexes : normal Knee Jerk , normal ankle Jerk lumber facet Loading Test =positive Right , positive Left Range of motion of the lumbar spine Flexion 30 degrees, extension 10 degrees strait leg raising test = positive at 60 degree Fabere test= positive Right , and positive LT . tenderness over the Sacroiliac joint on the Right , and Left sides Assessment and Plan Plan: MRI of the lumbar spine= L2-lumbar bulging disks disease L2-3 and C4 L4 5 and L5-S1 multilevel lumbar facet degeneration and foraminal stenosis at L4 5 and L5-S1 and epidural lipomatosis Assessment and Plan Plan: Assessment and plan=1-lumbar spondylosis with lumbar facet arthropathy without myelopathy. 2-lumbar bulging disc disease. 3-lumbar foraminal stenosis. 4-epidural lipomatosis. 5-peripheral neuropathy. 6-history of ITP. Status post RFA of the medial branch lumbar area, patient continued to have some low back pain is not a candidate for epidural steroid injection, because he had epidural lipomatosis, I discussed with the patient the option of referring him for a spine surgeon for evaluation, and he reported that he had no interest in having any surgical interventions, and he is leaving to [place] next few days, he will follow up in the clinic when necessary Time with Patient: Greater than 30 PQRS Measure Charge Sheet Measure #130: Documentation of Current Meds in Medical Chart: Patient's medications documented in chart Measure #226: Tobacco Use: Screen & Cessation Intervention: Pt not a tobacco user Measure #111: Pneumonia Vaccination: Pneumococcal vaccine administered or previously received Measure #47: Advance Care Plan: Advance care planning discussed & documented, pt chose/unable to give Measure #412: Opioid Treatment Agreement: No documentation of signed opioid treatment agreement Measure #408: Opioid Therapy Follow-up Evaluation: Patient had NO f/u eval minimum every 3 months during opioid therapy Measure #317: Preventitive Care & Scrn High Bld Press & F/U: Normal blood pressure, f/u not required Measure #128: Body Mass Index (BMI) Screening & Follow-up: BMI documented ABOVE normal parameters - f/u documented Measure #131: Pain Assessment & Follow-up: Pain positive & plan documented, Follow-up scheduled Measure #431: Unhealthy Alcohol Use Preventative Care & Scrn: Patient not identified as an unhealthy alcohol user PQRS Narrative: Time with Patient: Less than 30
== END | disposition home or self-care (01) ==
LOC: PNWHC3 10:45
PROVIDERS: ATTEND Specialist
DX: M48.061 Spinal stenosis, lumbar region without neurogenic claudication (principal); M47.816 Spondylosis without myelopathy or radiculopathy, lumbar region; M51.86 Other intervertebral disc disorders, lumbar region; G62.9 Polyneuropathy, unspecified; E88.2 Lipomatosis, not elsewhere classified; Z86.2 Personal history of diseases of the blood and blood-forming organs and certain disorders involving the immune mechanism; Z79.899 Other long term (current) drug therapy
CPT/HCPCS: 99211

== ENCOUNTER 2024-05-26 05:34 | Day surgery (SDC) | payer MEDICARE ==
[~2024-05-26 05:34] MED LIST changes: +GABAPENTIN 300 MG CAP PO PRN; -IV FLUID CONTINUATION 500 ML IV ONE; -LACTATED RINGERS 1,000 ML IV ONE; -LIDOCAINE 1% (10MG/ML) FOR IV START INTRADERMA ONE; -LIDOCAINE 1% INJ 10MG/ML (20 ML MDV) ONE; -LIDOCAINE 4% (PF) 5 ML AMP ONE; -MIDAZOLAM 2 MG/2 ML VIAL ONE; +TRANEXAMIC 1,000 MG/100ML-NACL 1,000 MG in SALINE 1 100ML.BAG IVPB PRN; -fentaNYL (PF) 50 MCG/ML 2 ML AMP ONE
[2024-05-26] MEDS: IV FLUID CONTINUATION 1,000 ML IV ONE (06:10)
[2024-05-26] MEDS: LIDOCAINE 1% (10MG/ML) FOR IV START INTRADERMA PRN (06:10)
[2024-05-26] MEDS: LACTATED RINGERS 1,000 ML IV SCH (06:10)
[2024-05-26] MEDS: ACETAMINOPHEN TAB 500 MG TAB PO PRN (06:26)
[2024-05-26 06:29] LABS: Glucose,Whole Blood 137 mg/dL (70-110)
[2024-05-26] MEDS: DEXAMETHASONE SOD PHOSPHATE 4 MG/ML 1 ML VIAL IV ONE (06:29)
[2024-05-26] MEDS: ONDANSETRON 4 MG/2 ML VIAL IVP ONE (06:29)
[2024-05-26] MEDS: HYDROCORTISONE SUCCINATE 100 MG/2 ML VIAL IVP ONE (06:45)
[2024-05-26] MEDS: MIDAZOLAM 2 MG/2 ML VIAL IVP ONE (06:47)
[2024-05-26] MEDS ORDERED: PROPOFOL 10 MG/ML 20 ML VIAL IV ONE (06:55)
[2024-05-26] MEDS ORDERED: NEOSTIGMINE 1 MG/ML 10 ML VIAL ONE (06:55)
[2024-05-26] MEDS ORDERED: DEXAMETHASONE SOD PHOSPHATE 4 MG/ML 1 ML VIAL ONE (06:55)
[2024-05-26] MEDS ORDERED: fentaNYL (PF) 50 MCG/ML 2 ML AMP ONE (06:55)
[2024-05-26] MEDS ORDERED: SUCCINYLCHOLINE CHLORIDE 200 MG/10 ML VIAL IV ONE (06:55)
[2024-05-26] MEDS ORDERED: TRANEXAMIC 1,000 MG/100ML-NACL PREMIX BAG ONE (06:55)
[2024-05-26] MEDS ORDERED: VASOPRESSIN 20 UNIT/ML 1 ML VIAL ONE (06:55)
[2024-05-26] MEDS ORDERED: PHENYLEPHRINE 10 MG/ML VIAL ONE (06:55)
[2024-05-26] MEDS ORDERED: GLYCOPYRROLATE 0.2 MG/ML 2 ML VIAL ONE (06:55)
[2024-05-26] MEDS ORDERED: LIDOCAINE 1% INJ 10MG/ML (20 ML MDV) ONE (06:55)
[2024-05-26] MEDS ORDERED: ePHEDrine 50 MG/ML 1 ML VIAL ONE (06:55)
[2024-05-26] MEDS ORDERED: ROPIVACAINE 5 MG/ML 30 ML VIAL ONE (06:55)
[2024-05-26] MEDS ORDERED: ROCURONIUM 10 MG/ML (5 ML VIAL) IV ONE (06:55)
[2024-05-26] MEDS ORDERED: CALCIUM CHLORIDE 100 MG/ML 10 ML SYRINGE ONE (06:55)
[2024-05-26] MEDS: ceFAZolin 3 GM in SODIUM CHLORIDE 0.9% 100 ML IVPB PRN (06:59)
[2024-05-26] MEDS: ceFAZolin 1,000 MG in SODIUM CHLORIDE 0.9% 1,000 ML IRRIGATION ONE (06:59)
[2024-05-26] MEDS ORDERED: HYDROmorphone 0.5 MG/0.5 ML SYRINGE IVP PRN ×4 (07:00→08:38)
[2024-05-26] MEDS ORDERED: MIDAZOLAM 2 MG/2 ML VIAL IV PRN (07:00)
[2024-05-26] MEDS: LACTATED RINGERS 1,000 ML IV ONE (08:09)
--- NOTE | 2024-05-26 08:14 | P.OP ---
Date of Procedure: 05/26/24 Preoperative Diagnosis: Severe glenohumeral osteoarthritis right shoulder with chronic rotator cuff tear Postoperative Diagnosis: Severe glenohumeral osteoarthritis right shoulder with chronic rotator cuff tear Procedure(s) Performed: Reverse total shoulder arthroplasty right shoulder Implants: Biomet comprehensive shoulder system, mini humeral stem, 15 mm porous-coated. Biomet comprehensive reverse shoulder system, humeral bearing, 36 mm, standard Biomet comprehensive reverse shoulder system, mini humeral tray, 40 mm, +0, standard Biomet comprehensive reverse shoulder, Glenosphere mini baseplate, 25 mm Biomet comprehensive reverse shoulder, central screw, 6.5 mm x 30 mm Biomet comprehensive reverse shoulder, fixed locking screw, 4.75 x 20 mm, 15 mm, 20 mm, 20 mm. Biomet comprehensive reverse shoulder glenosphere, 36 mm, standard All components were press-fit. Articulation is metal on polyethylene.Articulation is metal on polyethylene. Anesthesia: EDMUND Surgeon: Saw Stoddard High Speed Operator #1: Lisbeth Lizama Estimated Blood Loss (ml): 100 Pathology: none sent Condition: stable Disposition: PACU Indications for Procedure: This is a patient that presented to my office with severe pain in the shoulder. X-rays demonstrated severe osteoarthritis of the glenohumeral joint of the shoulder. After failure of conservative treatment, we discussed the surgical and nonsurgical treatment options at length. The patient wishes to proceed with a reverse total shoulder arthroplasty. Patient is aware of the complications of the procedure which include but are not limited to infection, hardware failure, persistent pain, dislocation, and nerve injury. Informed consent was obtained. Operative Findings: The operative findings are consistent with severe glenohumeral osteoarthritis w ith a chronic rotator cuff tear. There is also a large cyst anterior superiorly from the glenohumeral joint. Description of Procedure: The patient was seen in the preoperative area, consent was reviewed, and operative site was marked with a skin marker. Patient was then brought to the operating room and given preoperative antibiotics intravenously. Patient was al so given 1 g of Tranexamic acid intravenously. A general anesthetic was administered by the anesthesia department. A Figueroa catheter was placed by the nursing staff. The patient was then placed in a beachchair position with the bony prominences well-padded and the head secured. The shoulder was then prepped and draped in the usual sterile fashion. A universal timeout was then performed, which confirmed the patient's name, surgical site, ALLERGIES, and consent. A standard deltopectoral approach was performed. The skin and subcutaneous tissue was sharply dissected down to the deltoid fascia. The cephalic vein was then identified and retracted medially. The deltopectoral interval was then utilized to expose the subscapularis tendon. A retractor was then placed under the coracobrachialis tendon retracted medially, and the deltoid. The axillary nerve is palpated and protected throughout the procedure. The subscapularis tendon was then released and retracted medially. The humeral head was then exposed easily. The rotator cuff tendon was found to be completely torn and retracted. After the humeral head was exposed, osteophytes were removed with a Ronguer. Next the humeral stem was prepared. A starter reamer was then placed through the humeral head along the axis of the humeral shaft just lateral to the articular surface and just medial to the rotator cuff attachment. Sequential reaming was performed to the appropriate size reamer was inserted to the #between the 3 and 4 on the reamer. Next the intramedullary resection guide was placed on the reamer shaft. It was placed to the appropriate resection depth and angle of 30 of retroversion. Resection guide block was then secured with Steinmann pins. The proximal humerus was then resected. The block was then r emoved and the humerus was then broached sequentially to the same size as the reamer. After the broaches fully seated, the broach handle was removed and a broach cover was placed protect the humerus while the glenoid was prepared. Next attention was directed to the glenoid. The appropriate retractors were placed around the glenoid and any remaining soft tissues was removed from around the glenoid. There was a superior cyst that communicated with the glenohumeral joint. The cyst was decompressed digitally with a large amount of thick gelatinous material expressed from the cyst. The cyst was then irrigated with pulsatile lavage. After the glenoid was adequately exposed, the threaded glenoid guide was placed onto the glenoid and a 3.2 mm Steinmann pin was inserted in the glenoid at the desired angle and position, ensuring the pin engaged medial cortical wall. Next, the cannulated baseplate reamer was placed over the top of the Steinmann pin. The glenoid was then reamed to the ernesto ropriate depth. The glenoid reamer was then removed, leaving the Steinmann pin. The glenoid Kolton plate implant was placed on the end of the cannulated baseplate impactor. The baseplate was then impacted fully into the glenoid. Next the 6.5 mm central screw was then placed which afforded excellent fixation. The 4 peripheral locking screws were then drilled measured and placed. Next the appropriate glenosphere was opened and impacted into the glenoid baseplate. Attention was then redirected to the humerus. Next a trial humeral tray was placed in the shoulder was reduced. Shoulder was taken through a full range of motion and found to be stable. The shoulder was then gently dislocated, and the trial humerus and humeral tray were removed. The final humeral stem was impacted in the final humeral tray was impacted as well. Shoulder was then relocated. Again the shoulder was taken through a range of motion and found to have no instability. Shoulder was then irrigated with pulsatile lavage. The shoulder was then irrigated with Irrisept solution. A second dose of 1 g of Tranexamic acid was given. The subscapularis was then repaired with #1 Vicryl. The deltopectoral interval was then closed with #1 Vicryl as well. The subcutaneous tissues were closed with 3-0 Vicryl then Exofin glue was placed on the skin. A sterile dressing was then applied, the patient was transported to the recovery room in an arm sling in stable condition. The diet assistant SERAFIN Long was required due the complexity of surgery and the need for a skilled surgical scrub tech.
[2024-05-26] MEDS ORDERED: SENNOSIDES-DOCUSATE SODIUM 1 EACH TAB PO PRN (08:38)
[2024-05-26] MEDS ORDERED: ONDANSETRON 4 MG/2 ML VIAL IVP PRN (08:38)
[2024-05-26] MEDS ORDERED: HYDROcodone/APAP 7.5-325MG 1 EACH TAB PO PRN (08:40)
--- NOTE | 2024-05-26 09:25 | XR ---
EXAMINATION TYPE: XR shoulder limited RT DATE OF EXAM: 05/26/2024 COMPARISON: 03/11/2014 HISTORY: Right shoulder prosthesis TECHNIQUE: AP right shoulder FINDINGS: Humeral prosthesis is in place. There is a glenoid component. No acute fractures are eviden t. Postsurgical soft tissue changes are evident IMPRESSION: 1. No acute fracture post right shoulder replacement. [facility], , 05/26/2024 9:23 AM
--- NOTE | 2024-05-26 11:05 | P.ANPRN ---
Procedure Note - Anesthesia - Nerve Block Performed Right Interscalene Single Time Out Performed: Yes Date of Procedure: 05/26/24 Procedure Start Time: 12:38 Procedure Stop Time: 12:44 Location of Patient: PreOp Indication: Acute Post-Operative Pain, Requested by Surgeon Sedation Type: Sedate with meaningful contact maintained Preparation: Sterile Prep Position: Supine Needle Types: Pajunk Needle Gauge: 21 Ultrasound used to visualize needle placement: Yes Ultrasound used to observe medication spread: Yes Blood Aspirated: No Pain Paresthesia on Injection Noted: No Resistance on Injection: Normal Image Stored and Saved: Yes Events: Uneventful and Well Tolerated (Ropivacaine 0.5% 20 cc plus dexamethasone 4 mg)
[2024-05-26] MEDS: SODIUM CHLORIDE 0.9% 1,000 ML IV SCH (14:40)
[2024-05-26] MEDS: Pre Op ABX Message 1 EACH MISC MISCELLANE ONE (14:40)
[2024-05-26] MEDS ORDERED: DEXTROSE 50% SYRINGE 50 ML IVP PRN ×2 (15:39)
[2024-05-26] MEDS: ceFAZolin 3 GM in SODIUM CHLORIDE 0.9% 100 ML IVPB SCH (15:53)
[2024-05-26] MEDS: HYDROcodone/APAP 7.5-325MG 1 EACH TAB PO PRN (15:53)
--- NOTE | 2024-05-26 16:02 | P.CONS ---
History of Present Illness - Reason for Consult Consult date: 05/26/24 - History of Present Illness Patient is a 73-year-old male with history of hypertension, dyslipidemia, type 2 diabetes, ITP presenting for elective right total shoulder arthroplasty. [facility] physicians consulted for medical management. Currently temperature is 98, respiratory rate 18, pulse 81, blood pressure 116/67, saturating at 90% on room air. Potassium 4.4 this morning, glucose 137. Patient currently denies any chest pain, shortness of breath, abdominal pain, nausea, vomiting, urinary or bowel complaints. Pertinent positives and negatives as discussed in HPI, a complete review of systems was performed and all other systems are negative. Patient seen and examined at bedside. Vital signs reviewed General: nontoxic, no distress, appears at stated age obese Derm: warm, dry Head: atraumatic, normocephalic, symmetric Eyes: EOMI, no lid lag, anicteric sclera, pupils equal round reactive to light ENT: Nose and ears atraumatic Neck: No thyromegaly, supple Mouth: no lip lesion, mucus membranes moist Cardiovascular: S1S2 reg, no murmur, no edema Lungs: clear to auscultation bilateral, no rhonchi, no rales, no wheeze, no accessory muscle use Abdominal: soft, obese abdomen nontender to palpation, no guarding, no appreciable organomegaly Ext: Right arm in a sling Neuro: CN II-XII grossly intact Psych: Alert, oriented, appropriate affect Assessment/Plan: Hypertension -Continue lisinopril 10 mg daily, metoprolol 25 twice daily -Hold Lasix, patient currently euvolemic Dyslipidemia -Continue atorvastatin 80 mg at bedtime, ezetimibe 10 mg nightly Type 2 diabetes -Hold home metformin -Started on sliding scale insulin q. ACH S, monitor for hypoglycemia Neuropathy -Continue home amitriptyline 25 nightly, gabapentin 900 twice daily ITP -Continue prednisone 2.5 daily CAD -Continue aspirin 81 mg, atorvastatin and ezetimibe Status post right total shoulder arthroplasty On oral [place] as needed, IV Dilaudid as needed, monitor for sedation -Bowel regimen per orthopedic surgery -On SCDs -Patient is ambulatory -CBC and BMP tomorrow Thank you for allowing us to participate in the care of this pleasant patient. Do not hesitate to contact us with questions. Someone can be reached from the [facility] Physicians hospitalist group all hours of the day at [phone] or via PPTV. Past Medical History Past Medical History: Blood Disorder, Diabetes Mellitus, Hyperlipidemia, Hypertension, Myocardial Infarction ([place]), Osteoarthritis ([place]) Additional Past Medical History / Comment(s): Sciatica, HX OF ITP, NEUROPATHY BLANKA FEET Last Myocardial Infarction Date:: 2011 History of Any Multi-Drug Resistant Organisms: None Reported Past Surgical History: Heart Catheterization With Stent, Joint Replacement, Orthopedic Surgery, Tonsillectomy Additional Past Surgical History / Comment(s): SPLENECTOMY, Bilateral cataract surgery, bilat. TKA, Bone removed from Rt. foot, cyst removed Lt. forearm Total right shoulder 05/26/24 Past Anesthesia/Blood Transfusion Reactions: No Reported Reaction Date of Last Stent Placement:: 2011 Smoking Status: Never smoker - Past Family History Mother Family Medical History: No Reported History Father Family Medical History: Diabetes Mellitus Sister(s) Family Medical History: Diabetes Mellitus Medications and Allergies Home Medications Medication Instructions Recorded Confirmed Type Amitriptyline HCl 25 mg PO HS 08/09/14 05/20/24 History Atorvastatin [Lipitor] 80 mg PO HS 08/09/14 05/20/24 History Gabapentin 900 mg PO BID 08/09/14 05/20/24 History Metoprolol Tartrate 25 mg PO BID 08/09/14 05/20/24 History lisinopriL [Lisinopril] 10 mg PO QAM 08/09/14 05/20/24 History predniSONE [Prednisone] 2.5 mg PO DAILY 08/09/14 05/20/24 History Ezetimibe [Zetia] 10 mg PO HS 04/28/19 05/20/24 History Acetaminophen Tab [Tylenol Tab] 1,000 mg PO Q6HR PRN 05/06/20 05/20/24 History Furosemide [Lasix] 20 mg PO DAILY 05/06/20 05/20/24 History metFORMIN HCL [Glucophage] 500 mg PO BID 05/06/20 05/20/24 History Aspirin [Adult Low Dose Aspirin EC] 81 mg PO DAILY 05/20/24 05/20/24 History Mv-Mn/Om3/Dha/Epa/Fish/Lut/South 1 tab PO DAILY 05/20/24 05/20/24 History [Ocuvite Adult 50 Plus Softgel] HYDROcodone/APAP 7.5-325MG [[place] 1 - 2 tab PO Q6H PRN #32 tab 05/26/24 Rx 7.5-325] Sennosides [Senokot] 2 tab PO DAILY PRN #60 tablet 05/26/24 Rx Allergies Allergy/AdvReac Type Severity Reaction Status Date / Time naproxen [From Naprosyn] Allergy blisters Verified 05/20/24 10:06 to [facility] Physical Exam Vitals: Vital Signs Temp Pulse Pulse Pulse Resp BP Pulse Ox 05/26/24 14:03 98.0 F 81 18 116/67 90 L 05/26/24 13:32 72 16 126/60 96 05/26/24 13:00 72 16 124/56 96 05/26/24 12:30 68 16 126/60 96 05/26/24 12:00 72 16 133/63 96 05/26/24 11:30 62 16 113/64 96 05/26/24 11:04 66 16 133/68 96 05/26/24 10:36 60 16 114/56 96 05/26/24 10:19 55 L 16 128/61 96 05/26/24 10:04 55 L 16 122/63 96 05/26/24 09:45 55 L 16 120/60 96 05/26/24 09:35 58 L 16 122/59 96 05/26/24 09:16 56 L 16 120/59 96 05/26/24 09:04 60 16 125/58 96 05/26/24 08:49 59 L 16 115/56 94 L 05/26/24 08:33 97 F L 63 14 147/67 94 L 05/26/24 06:55 59 L 16 122/68 95 05/26/24 06:10 97.2 F L 60 16 166/71 98 Intake and Output 05/26/24 05/26/24 05/26/24 06:59 14:59 22:59 Intake Total 1101 0 Output Total 100 Balance 1101 -100 Intake: IV 1101 0 Output: Estimated Blood Loss 100 Other: Weight 120.2 kg 120.2 kg Results CBC & Chem 7: 05/26/24 06:10 Labs: Abnormal Lab Results - Last 24 Hours (Table) 05/26/24 Range/Units 06:12 POC Glucose (mg/dL) 137 H (70-110) mg/dL
[2024-05-26] MEDS: INSULIN ASPART (NovoLOG) 100 UNIT/ML VIAL SQ SCH (18:15)
[2024-05-26] MEDS: EZETIMIBE 10 MG TAB PO SCH (21:01)
[2024-05-26] MEDS: ATORVASTATIN 80 MG TAB PO SCH (21:01)
[2024-05-26] MEDS: GABAPENTIN 300 MG CAP PO SCH (21:01)
[2024-05-26] MEDS: METOPROLOL TARTRATE 25 MG TAB PO SCH (21:01)
[2024-05-26] MEDS: AMITRIPTYLINE HCL 25 MG TAB PO SCH (21:02)
[2024-05-26 22:21] LABS: Glucose,Whole Blood 203 mg/dL (70-110)
[2024-05-27 06:37] LABS: Glucose,Whole Blood 133 mg/dL (70-110)
[2024-05-27 08:07] VITALS: RESP 17
[2024-05-27 08:46] LABS: HCT 36.5 % (39.6-50.0); HGB 11.8 g/dL (13.0-17.0); MCH 31.2 pg (27.0-32.0); MCHC 32.3 g/dL (32.0-37.0); MCV 96.6 FL (80.0-97.0); Mean Platelet Volume 11.4 FL (9.5-12.2); NRBC Per 100 WBC 0 X 10*3/uL (0.00-0.01); Platelet Count 226 X 10*3/uL (140-440); RBC 3.78 X 10*6/uL (4.40-5.60); WBC 17.45 X 10*3/uL (4.50-10.00)
[2024-05-27 09:06] LABS: BUN/Creat Ratio 19.25 Ratio (12.00-20.00); Blood Urea Nitrogen 15.4 mg/dL (9.0-27.0); Calcium 9.1 mg/dL (8.7-10.3); Chloride 106 mmol/L (96-109); Glucose 139 mg/dL (70-110); Potassium 4.8 mmol/L (3.5-5.5); Sodium 140 mmol/L (135-145)
[2024-05-27] MEDS: lisinopriL 10 MG TAB PO SCH (09:38)
[2024-05-27] MEDS: ASPIRIN 81 MG PO SCH (09:38)
[2024-05-27] MEDS: predniSONE 2.5 MG TAB PO SCH (09:39)
--- NOTE | 2024-05-27 10:17 | P.CRDCN ---
History of Present Illness History of present illness: This is Dr. Haynes dictating a consult on this patient The patient was interviewed and examined IMPRESSION / ASSESSMENT: Hypertension, well-controlled Dyslipidemia, on atorvastatin and Zetia Type 2 diabetes CAD on medical treatment Status post shoulder arthroplasty and doing well without any chest discomfort PLAN: From a cardiovascular standpoint patient should continue his cardiac medications and follow-up with Dr. Rodriguez as before No further cardiovascular evaluation needed at this point HPI Patient was admitted with shoulder pain and arthritis and underwent shoulder surgery He is doing well postoperatively no chest pain dizziness lightheadedness no undue shortness of breath ROS: No fever chills or rigors, no cough, phlegm or expectoration, no nausea, vomiting or diarrhea, no hematuria, dysuria, no musculoskeletal complaints, no strokes or seizures, no skin lesions. EXAMINATION: Heart sounds are normal breath sounds are clear Afebrile Pulse rate in the 70s blood pressure 160/42 mmHg No murmurs to gallops or rub Clear lungs Abdomen soft REVIEW OF LABS, ECG & MEDICAL DATA Electrolytes normal Past Medical History Past Medical History: Blood Disorder, Diabetes Mellitus, Hyperlipidemia, Hypertension, Myocardial Infarction ([place]), Osteoarthritis (OA) Additional Past Medical History / Comment(s): Sciatica, HX OF ITP, NEUROPATHY BLANKA FEET Last Myocardial Infarction Date:: 2011 History of Any Multi-Drug Resistant Organisms: None Reported Past Surgical History: Heart Catheterization With Stent, Joint Replacement, Orthopedic Surgery, Tonsillectomy Additional Past Surgical History / Comment(s): SPLENECTOMY, Bilateral cataract surgery, bilat. TKA, Bone removed from Rt. foot, cyst removed Lt. forearm Total right shoulder 05/26/24 Past Anesthesia/Blood Transfusion Reactions: No Reported Reaction Date of Last Stent Placement:: 2011 Smoking Status: Never smoker - Past Family History Mother Family Medical History: No Reported History Father Family Medical History: Diabetes Mellitus Sister(s) Family Medical History: Diabetes Mellitus Medications and Allergies Home Medications Medication Instructions Recorded Confirmed Type Amitriptyline HCl 25 mg PO HS 08/09/14 05/20/24 History Atorvastatin [Lipitor] 80 mg PO HS 08/09/14 05/20/24 History Gabapentin 900 mg PO BID 08/09/14 05/20/24 History Metoprolol Tartrate 25 mg PO BID 08/09/14 05/20/24 History lisinopriL [Lisinopril] 10 mg PO QAM 08/09/14 05/20/24 History predniSONE [Prednisone] 2.5 mg PO DAILY 08/09/14 05/20/24 History Ezetimibe [Zetia] 10 mg PO HS 04/28/19 05/20/24 History Acetaminophen Tab [Tylenol Tab] 1,000 mg PO Q6HR PRN 05/06/20 05/20/24 History Furosemide [Lasix] 20 mg PO DAILY 05/06/20 05/20/24 History metFORMIN HCL [Glucophage] 500 mg PO BID 05/06/20 05/20/24 History Aspirin [Adult Low Dose Aspirin EC] 81 mg PO DAILY 05/20/24 05/20/24 History Mv-Mn/Om3/Dha/Epa/Fish/Lut/South 1 tab PO DAILY 05/20/24 05/20/24 History [Ocuvite Adult 50 Plus Softgel] HYDROcodone/APAP 7.5-325MG [[place] 1 - 2 tab PO Q6H PRN #32 tab 05/26/24 Rx 7.5-325] Sennosides [Senokot] 2 tab PO DAILY PRN #60 tablet 05/26/24 Rx Allergies Allergy/AdvReac Type Severity Reaction Status Date / Time naproxen [From Naprosyn] Allergy blisters Verified 05/20/24 10:06 to [facility] areas Physical Exam Vitals: Vital Signs Temp Pulse Pulse Resp BP Pulse Ox 05/27/24 08:04 97.7 F 88 17 131/73 05/27/24 02:38 96.6 F L 70 16 116/42 95 05/26/24 14:03 98.0 F 81 18 116/67 90 L 05/26/24 13:32 72 16 126/60 96 05/26/24 13:00 72 16 124/56 96 05/26/24 12:30 68 16 126/60 96 05/26/24 12:00 72 16 133/63 96 05/26/24 11:30 62 16 113/64 96 05/26/24 11:04 66 16 133/68 96 05/26/24 10:36 60 16 114/56 96 05/26/24 10:19 55 L 16 128/61 96 Intake and Output 05/26/24 05/27/24 05/27/24 22:59 06:59 14:59 Intake Total 2000 Output Total 800 Balance 1200 Intake: Oral 2000 Output: Urine 800 Other: Voiding Method Toilet Urinal # Voids 3 Results 05/27/24 04:41 05/27/24 04:41 CBC 05/27/24 Range/Units 04:41 WBC 17.45 H (4.50-10.00) X 10*3/uL RBC 3.78 L (4.40-5.60) X 10*6/uL Hgb 11.8 L (13.0-17.0) g/dL Hct 36.5 L (39.6-50.0) % Plt Count 226 (140-440) X 10*3/uL Comprehensive Metabolic Panel 05/27/24 Range/Units 04:41 Sodium 140 (135-145) mmol/L Potassium 4.8 (3.5-5.5) mmol/L Chloride 106 (96-109) mmol/L Carbon Dioxide 24.0 (21.6-31.8) mmol/L BUN 15.4 (9.0-27.0) mg/dL Creatinine 0.8 (0.6-1.5) mg/dL Glucose 139 H (70-110) mg/dL Calcium 9.1 (8.7-10.3) mg/dL Current Medications Generic Name Dose Route Start Last Admin Trade Name Freq PRN Reason Stop Dose Admin Hydrocodone Bitart/Acetaminophen 1 each 05/26/24 08:40 Hydrocodone/Apap 7.5-325mg 1 Each Tab PO 06/25/24 08:39 Q6H PRN Pain Scale 1 to 5 Hydrocodone Bitart/Acetaminophen 2 each 05/26/24 08:40 05/27/24 05:05 Hydrocodone/Apap 7.5-325mg 1 Each Tab PO 06/25/24 08:39 2 each Q6H PRN Administration Pain Scale 6 to 10 Amitriptyline HCl 25 mg 05/26/24 21:00 05/26/24 21:02 Amitriptyline Hcl 25 Mg Tab PO 25 mg HS AMY Administration Aspirin 81 mg 05/27/24 09:00 05/27/24 09:38 Aspirin 81 Mg PO 81 mg DAILY AMY Administration Atorvastatin Calcium 80 mg 05/26/24 21:00 05/26/24 21:01 Atorvastatin 80 Mg Tab PO 80 mg HS AMY Administration Dextrose/Water 25 ml 05/26/24 15:39 Dextrose 50% Syringe 50 Ml IVP PER PROTOCOL PRN Hypoglycemia Protocol Dextrose/Water 50 ml 05/26/24 15:39 Dextrose 50% Syringe 50 Ml IVP PER PROTOCOL PRN Hypoglycemia Protocol Ezetimibe 10 mg 05/26/24 21:00 05/26/24 21:01 Ezetimibe 10 Mg Tab PO 10 mg HS AMY Administration Gabapentin 900 mg 05/26/24 21:00 05/27/24 09:38 Gabapentin 300 Mg Cap PO 900 mg BID AMY Administration Hydromorphone HCl 0.125 mg 05/26/24 08:38 Hydromorphone 0.5 Mg/0.5 Ml Syringe IVP 06/25/24 08:37 Q3HR PRN Pain Scale 1 to 3 Hydromorphone HCl 0.25 mg 05/26/24 08:38 Hydromorphone 0.5 Mg/0.5 Ml Syringe IVP 06/25/24 08:37 Q3HR PRN Pain Scale 4 to 6 Hydromorphone HCl 0.5 mg 05/26/24 08:38 Hydromorphone 0.5 Mg/0.5 Ml Syringe IVP 06/25/24 08:37 Q3HR PRN Pain Scale 7 to 10 Lactated Ringer's 1,000 mls @ 20 mls/hr 05/25/24 14:15 05/26/24 14:40 Lactated Ringers IV 06/24/24 14:14 Not Given .Q24H AMY Sodium Chloride 1,000 mls @ 70 mls/hr 05/26/24 09:00 05/26/24 16:02 Saline 0.9% IV 06/25/24 08:59 70 mls/hr .[id number] AMY Administration Insulin Aspart 0 unit 05/26/24 17:30 05/27/24 06:40 Insulin Aspart (Novolog) 100 Unit/Ml Vial SQ Not Given ACHS COUNTS INCLUDE 234 BEDS AT THE [facility] Protocol Lidocaine HCl 0.1 ml 05/25/24 14:03 05/26/24 06:10 Lidocaine 1% (10mg/Ml) For Iv Start INTRADERMA 06/24/24 14:02 0.1 ml PER PROTOCOL PRN Administration IV Start Lisinopril 10 mg 05/27/24 09:00 05/27/24 09:38 Lisinopril 10 Mg Tab PO 10 mg QAM AMY Administration Metoprolol Tartrate 25 mg 05/26/24 21:00 05/27/24 09:39 Metoprolol Tartrate 25 Mg Tab PO 25 mg BID AMY Administration Ondansetron HCl 4 mg 05/26/24 08:38 Ondansetron 4 Mg/2 Ml Vial IVP 06/25/24 08:37 Q8H PRN Nausea And Vomiting Prednisone 2.5 mg 05/27/24 09:00 05/27/24 09:39 Prednisone 2.5 Mg Tab PO 2.5 mg DAILY AMY Administration Senna/Docusate Sodium 2 each 05/26/24 08:38 Sennosides-Docusate Sodium 1 Each Tab PO 06/25/24 08:37 HS PRN Constipation Intake and Output 05/26/24 05/27/24 05/27/24 22:59 06:59 14:59 Intake Total 2000 Output Total 800 Balance 1200 Intake: Oral 2000 Output: Urine 800 Other: Voiding Method Toilet Urinal # Voids 3 05/27/24 04:41 05/27/24 04:41
--- NOTE | 2024-05-27 10:58 | P.PN ---
Subjective Progress Note Date: 05/27/24 Subjective: Patient seen and examined at bedside. No acute events overnight. Pertinent positives and negatives as discussed above, a complete review of systems was performed and all other systems are negative. Vitals Signs Reviewed. General: Nontoxic, no distress, appears at stated age, obese Derm: Warm, dry Head: Atraumatic, normocephalic, symmetric Eyes: EOMI, no lid lag, anicteric sclera Mouth: No lip lesion, mucus membranes moist Cardiovascular: S1S2 reg, no murmur Lungs: CTA bilateral, no rhonchi, no rales, no accessory muscle use Abdominal: Soft, nontender to palpation, no guarding, no appreciable organomegaly Ext: Right arm in sling Neuro: CN II-XI grossly intact, no focal neuro deficits Psych: Alert, oriented, appropriate affect Data Reviewed Today: Pertinent Labs: WBC 17.45, hemoglobin 11.8, platelet 226, potassium 4.8, creatinine 0.8, blood sugars range between 1 33-2 03, A1c 7.1 Imaging: No new imaging Assessment and Plan: Hypertension -Continue lisinopril 10 mg daily, metoprolol 25 twice daily -Hold Lasix, patient currently euvolemic Dyslipidemia -Continue atorvastatin 80 mg at bedtime, ezetimibe 10 mg nightly Type 2 diabetes -Hold home metformin -Continue on sliding scale insulin q. ACH S, monitor for hypoglycemia Neuropathy -Continue home amitriptyline 25 nightly, gabapentin 900 twice daily ITP -Continue prednisone 2.5 daily -Platelets stable CAD -Continue aspirin 81 mg, atorvastatin and ezetimibe Status post right total shoulder arthroplasty Leukocytosis, anticipated outcome of surgery On oral [place] as needed, IV Dilaudid as needed, monitor for sedation -Bowel regimen per orthopedic surgery -On SCDs -Patient is ambulatory Patient is medically optimized for discharge Thank you for allowing us to participate in the care of this pleasant patient. Do not hesitate to contact us with questions. Someone can be reached from the [facility] hospitalist group all hours of the day at [phone] or via perfect serve. Objective - Vital Signs Vital signs: Vital Signs Temp 97.7 F 05/27/24 08:04 Pulse 88 05/27/24 08:04 Resp 17 05/27/24 08:04 BP 131/73 05/27/24 08:04 Pulse Ox 95 05/27/24 02:38 FiO2 Intake & Output 05/26/24 05/27/24 05/27/24 18:59 06:59 18:59 Intake Total 0 2000 Output Total 100 800 Balance -100 1200 Weight 120.2 kg Intake: IV 0 Oral 2000 Output: Urine 800 Estimated Blood Loss 100 Other: Voiding Method Toilet Urinal # Voids 1 3 - Labs CBC & Chem 7: 05/27/24 04:41 05/27/24 04:41 Labs: Abnormal Lab Results - Last 24 Hours (Table) 05/26/24 05/27/24 05/27/24 Range/Units 22:19 04:41 04:41 WBC 17.45 H (4.50-10.00) X 10*3/uL RBC 3.78 L (4.40-5.60) X 10*6/uL Hgb 11.8 L (13.0-17.0) g/dL Hct 36.5 L (39.6-50.0) % RDW 16.0 H (11.5-14.5) % Glucose (70-110) mg/dL POC Glucose (mg/dL) 203 H (70-110) mg/dL Hemoglobin A1c 7.1 H (<=6.0) % 05/27/24 05/27/24 Range/Units 04:41 06:35 WBC (4.50-10.00) X 10*3/uL RBC (4.40-5.60) X 10*6/uL Hgb (13.0-17.0) g/dL Hct (39.6-50.0) % RDW (11.5-14.5) % Glucose 139 H (70-110) mg/dL POC Glucose (mg/dL) 133 H (70-110) mg/dL Hemoglobin A1c (<=6.0) %
[2024-05-27 10:59] LABS: Acanthocytes 2+; Basophils # (A) 0.03 X 10*3/uL (0.00-0.10); Basophils % (A) 0.2 %; Eosinophils # (A) 0.01 X 10*3/uL (0.04-0.35); Eosinophils % (A) 0.1 %; Lymphocytes # (A) 4.34 X 10*3/uL (0.90-5.00); Lymphocytes % (A) 24.9 %; Monocytes # (A) 1.89 X 10*3/uL (0.20-1.00); Monocytes % (A) 10.8 %; Neutrophils # (A) 11.11 X 10*3/uL (1.80-7.70); Neutrophils % (A) 63.6 %
--- NOTE | 2024-05-27 10:59 | P.DS ---
Providers Expected date of discharge: 05/27/24 Attending physician: Saw Stoddard Consults: 05/26/24 15:31 Consult Physician Routine Consulting Provider: Colton Armando Consult Reason/Comments: medical management Do you want consulting provider notified?: Already Contacted Primary care physician: Saw Campbell - Discharge Diagnosis(es) (1) Osteoarthritis of right shoulder Current Visit: Yes Status: Acute (2) S/p reverse total shoulder arthroplasty Current Visit: Yes Status: Acute Hospital Course: This is a 73-year-old male with known history of degenerative arthritis of the right shoulder and chronic rotator cuff tear. The patient presented for evaluation as an outpatient. After discussion and consideration patient elects to proceed with reverse total shoulder arthroplasty. The patient is seen preoperatively by Dr. Stoddard and medically cleared for surgery by their primary care physician. Patient is admitted to [facility] on 05/26/2024 for reverse total shoulder arthroplasty. The procedure is performed without complication or sequelae. The patient is doing well postoperatively. Labs and vital signs are stable on day of discharge. On day of discharge the patient's shoulder incision is healing well. There is minimal erythema. There is no drainage noted at this time. There is minimal soft tissue swelling to the shoulder. Patient has full hand and wrist motion without difficulty or pain. Neurovascular status to the right upper extremity is intact. Patient is discharged home in good condition. Please see med rec for accurate list of home medications. Plan - Discharge Summary Discharge Rx Participant: Yes New Discharge Prescriptions: New HYDROcodone/APAP 7.5-325MG [[place] 7.5-325] 1 - 2 tab PO Q6H PRN #32 tab PRN Reason: Pain Sennosides [Senokot] 2 tab PO DAILY PRN #60 tablet PRN Reason: Constipation Continue predniSONE [Prednisone] 2.5 mg PO DAILY lisinopriL [Lisinopril] 10 mg PO QAM Atorvastatin [Lipitor] 80 mg PO HS Amitriptyline HCl 25 mg PO HS Metoprolol Tartrate 25 mg PO BID Gabapentin 900 mg PO BID Ezetimibe [Zetia] 10 mg PO HS metFORMIN HCL [Glucophage] 500 mg PO BID Furosemide [Lasix] 20 mg PO DAILY Mv-Mn/Om3/Dha/Epa/Fish/Lut/South [Ocuvite Adult 50 Plus Softgel] 1 tab PO DAILY Aspirin [Adult Low Dose Aspirin EC] 81 mg PO DAILY No Action Acetaminophen Tab [Tylenol Tab] 1,000 mg PO Q6HR PRN PRN Reason: Pain Discharge Medication List Amitriptyline HCl 25 mg PO HS 08/09/14 [History] Atorvastatin [Lipitor] 80 mg PO HS 08/09/14 [History] Gabapentin 900 mg PO BID 08/09/14 [History] Metoprolol Tartrate 25 mg PO BID 08/09/14 [History] lisinopriL [Lisinopril] 10 mg PO QAM 08/09/14 [History] predniSONE [Prednisone] 2.5 mg PO DAILY 08/09/14 [History] Ezetimibe [Zetia] 10 mg PO HS 04/28/19 [History] Acetaminophen Tab [Tylenol Tab] 1,000 mg PO Q6HR PRN 05/06/20 [History] Furosemide [Lasix] 20 mg PO DAILY 05/06/20 [History] metFORMIN HCL [Glucophage] 500 mg PO BID 05/06/20 [History] Aspirin [Adult Low Dose Aspirin EC] 81 mg PO DAILY 05/20/24 [History] Mv-Mn/Om3/Dha/Epa/Fish/Lut/South [Ocuvite Adult 50 Plus Softgel] 1 tab PO DAILY 05/20/24 [History] HYDROcodone/APAP 7.5-325MG [[place] 7.5-325] 1 - 2 tab PO Q6H PRN #32 tab 05/26/24 [Rx] Sennosides [Senokot] 2 tab PO DAILY PRN #60 tablet 05/26/24 [Rx] Follow up Appointment(s)/Referral(s): Saw Stoddard DO [Doctor of Osteopathic Medicine] - 2 Weeks Activity/Diet/Wound Care/Special Instructions: Maintain sling for comfort. Dressing may be removed by home care nurse or by patient in 7 days. Then change dressing twice daily until follow up. May shower with initial dressing intact and after removal. If dressing become saturated, please remove. Please follow-up with [facility] and call with any questions or concerns, . Discharge Disposition: HOME SELF-CARE
[2024-05-27 12:10] VITALS: BP 115/63; PULSE 54; TEMP 97.6
[2024-05-27 12:11] LABS: Glucose,Whole Blood 165 mg/dL (70-110)
== END 2024-05-27 13:09 | disposition home or self-care (01) ==
LOC: OR 05:34 → 4SSUR 08:33 → OR 05-27 13:09
PROVIDERS: ATTEND Orthopaedic Surgery
DX: M19.011 Primary osteoarthritis, right shoulder (principal); G89.18 Other acute postprocedural pain; M75.101 Unspecified rotator cuff tear or rupture of right shoulder, not specified as traumatic; D69.3 Immune thrombocytopenic purpura; E11.40 Type 2 diabetes mellitus with diabetic neuropathy, unspecified; E78.5 Hyperlipidemia, unspecified; I10 Essential (primary) hypertension; I25.10 Atherosclerotic heart disease of native coronary artery without angina pectoris; I25.2 Old myocardial infarction; Z79.52 Long term (current) use of systemic steroids; Z79.82 Long term (current) use of aspirin; Z79.84 Long term (current) use of oral hypoglycemic drugs; Z79.899 Other long term (current) drug therapy; Z88.6 Allergy status to analgesic agent
CPT/HCPCS: 64415; 80048; 84132; 85025; 83036; 73020; 23472; C1776; J2250; J0330; J1100; J2710; J1720; J0690 ×3; J2405; J2001; J3010; J2795; J2704; J7512; J2371; J1596